=== PATIENT | female | born 1950 | race Hispanic/Latino ===

== ENCOUNTER 2022-09-09 10:16 | Inpatient (IN) | payer OTHER ==
[2022-09-09 10:58] LABS: Absolute Lymphocytes (CBC) 0.9 K/uL (0.7-4.9); Hematocrit 38.2 % (36.0-45.0); Lymphocytes % 7.7 % (15.3-44.8); MCV 90.6 fL (80-100); MPV 8.9 fL (7.6-11.3); RBC Red Blood Cell Count 4.22 M/uL (3.86-4.86)
[2022-09-09] MEDS ORDERED: CEFTRIAXONE 1000 MG/VIAL ONE (11:00)
[2022-09-09] MEDS ORDERED: FENTANYL CITR 100 MCG/2 ML ONE (11:00)
[2022-09-09] MEDS ORDERED: ONDANSETRON 4 MG/2 ML VIAL ONE (11:01)
[2022-09-09] MEDS ORDERED: METRONIDAZOLE 500mg IVPB 500 MG/100 ML BAG IV ONE (11:01)
[2022-09-09 11:02] LABS: Protime INR 1.05
[2022-09-09 11:18] LABS: Albumin 3.8 g/dL (3.4-5.0); Bilirubin Direct 0.2 mg/dL (0-0.2); Bilirubin Indirect, Calculated 0.4 mg/dL (0.2-0.8); Bilirubin Total 0.6 mg/dL (0.2-1.0); Magnesium 2.1 mg/dL (1.6-2.4); Potassium 3.9 mEq/L (3.5-5.1); Protein, Total 7.5 g/dL (6.4-8.2); Troponin High Sensitivity 4.4 pg/mL (<58.9)
--- NOTE | 2022-09-09 11:52 | RAD REPORT ---
EXAM DESCRIPTION: CT - Abdomen Pelvis W Contrast - 09/09/2022 11:39 am CLINICAL HISTORY: Abdominal pain COMPARISON: none. TECHNIQUE: Computed axial tomography of the abdomen pelvis was obtained. 100 cc Isovue-300 was admin istered intravenously. Oral contrast was not requested which limits evaluation of bowel and appendix All CT scans are performed using dose optimization technique as appropriate and may include automated exposure control or mA/KV adjustment according to patient size. FINDINGS: The liver, spleen, pancreas, and adrenals appear unremarkable Small bilateral renal cysts. Normal appendix. No adnexal mass Diverticula stem from the colon. Mild to moderate stranding adjacent the proximal sigmoid colon. No a bscess. No free air Small duodenal diverticulum. Small to moderate umbilical hernia contains fat Thickening of the wall of the distal esophagus could be secondary to incomplete distention or patholo gy such as inflammation. IMPRESSION: Mild to moderate sigmoid diverticulitis Thickening of the wall of the distal esophagus could be secondary to incomplete distention or patholo gy such as inflammation.
--- NOTE | 2022-09-09 11:54 | RAD REPORT ---
EXAM DESCRIPTION: Satish Single View09/09/2022 11:25 am CLINICAL HISTORY: Abdominal pain COMPARISON: none FINDINGS: The lungs appear clear of acute infiltrate. The heart is normal size Mild prominence right paratracheal region IMPRESSION: Mild prominence right paratracheal region may be secondary to tortuous ascending thoraci c aorta. Lymphadenopathy can also have this appearance. Followup PA and lateral chest series in 6 wee ks recommended
[2022-09-09] MEDS ORDERED: FAMOTIDINE 20 MG/2 ML VIAL IV ONE (12:22)
[2022-09-09] MEDS ORDERED: CIPROFLOXACIN 400mg IV 400 MG/200 ML BAG IV ONE (12:22)
--- NOTE | 2022-09-09 12:26 | EDPHYS ---
Physician Documentation [facility] Name: Grace Jones Age: 72 yrs Sex: Female : 1950 Arrival Date: 09/09/2022 Time: 10:16 Bed 5 Private MD: ED Physician Marv Aguiar HPI: 09/09 11:36 This 72 yrs old Female presents to ER via Ambulatory with complaints of indra Abdominal Pain. 11:36 The patient presents with abdominal pain in the lower abdomen, abdominal distention in indra the upper abdomen, in the lower abdomen. Onset: The symptoms/episode began/occurred 2 day(s) ago. The symptoms do not radiate. Associated signs and symptoms: Pertinent positives: constipation, fever. The symptoms are described as constant, crampy. Modifying factors: The symptoms are alleviated by nothing, the symptoms are aggravated by nothing. Severity of pain: At its worst the pain was moderate in the emergency department the pain is unchanged. The patient has not experienced similar symptoms in the past. Historical: - Allergies: 10:20 Aspirin; aa5 - Home Meds: 10:20 Gemfibrozil Oral [Active]; Spironolactone Oral [Active]; escitalopram oxalate oral aa5 [Active]; - PMHx: 10:20 None; aa5 - PSHx: 10:20 Cholecystectomy; aa5 - Immunization history:: Adult Immunizations unknown. - Social history:: Smoking status: Patient denies any tobacco usage or history of. ROS: 11:37 Constitutional: Negative for fever, chills, and weight loss, Eyes: Negative for injury, indra pain, redness, and discharge, ENT: Negative for injury, pain, and discharge, Neck: Negative for injury, pain, and swelling, Cardiovascular: Negative for chest pain, palpitations, and edema, Respiratory: Negative for shortness of breath, cough, wheezing, and pleuritic chest pain, Back: Negative for injury and pain, : Negative for injury, bleeding, discharge, and swelling, MS/Extremity: Negative for injury and deformity, Skin: Negative for injury, rash, and discoloration, Neuro: Negative for headache, weakness, numbness, tingling, and seizure, Psych: Negative for depression, anxiety, suicide ideation, homicidal ideation, and hallucinations, Allergy/Immunology: Negative for hives, rash, and allergies, Endocrine: Negative for neck swelling, polydipsia, polyuria, polyphagia, and marked weight changes, Hematologic/Lymphatic: Negative for swollen nodes, abnormal bleeding, and unusual bruising. 11:37 Abdomen/GI: Positive for abdominal pain, of the left lower quadrant. Exam: 11:37 Head/Face: Normocephalic, atraumatic. Eyes: Pupils equal round and reactive to light, indra extra-ocular motions intact. Lids and lashes normal. Conjunctiva and sclera are non-icteric and not injected. Cornea within normal limits. Periorbital areas with no swelling, redness, or edema. ENT: Nares patent. No nasal discharge, no septal abnormalities noted. Tympanic membranes are normal and external auditory canals are clear. Oropharynx with no redness, swelling, or masses, exudates, or evidence of obstruction, uvula midline. Mucous membranes moist. Neck: Trachea midline, no thyromegaly or masses palpated, and no cervical lymphadenopathy. Supple, full range of motion without nuchal rigidity, or vertebral point tenderness. No Meningismus. Chest/axilla: Normal chest wall appearance and motion. Nontender with no deformity. No lesions are appreciated. Cardiovascular: Regular rate and rhythm with a normal S1 and S2. No gallops, murmurs, or rubs. Normal PMI, no JVD. No pulse deficits. Respiratory: Lungs have equal breath sounds bilaterally, clear to auscultation and percussion. No rales, rhonchi or wheezes noted. No increased work of breathing, no retractions or nasal flaring. Back: No spinal tenderness. No costovertebral tenderness. Full range of motion. Female : Normal external genitalia. Skin: Warm, dry with normal turgor. Normal color with no rashes, no lesions, and no evidence of cellulitis. MS/ Extremity: Pulses equal, no cyanosis. Neurovascular intact. Full, normal range of motion. Neuro: Awake and alert, GCS 15, oriented to person, place, time, and situation. Cranial nerves II-XII grossly intact. Motor strength 5/5 in all extremities. Sensory grossly intact. Cerebellar exam normal. Normal gait. Psych: Awake, alert, with orientation to person, place and time. Behavior, mood, and affect are within normal limits. 11:37 Constitutional: The patient appears well developed, febrile. 11:37 ECG was reviewed by the Attending Physician. Vital Signs: 10:20 BP 107 / 54; Pulse 61; Resp 18 S; Temp 100.2(O); Pulse Ox 98% ; Weight 72.57 kg (R); aa5 Height 5 ft. 2 in. (R); 12:01 Temp 98.4(O); aa5 12:01 BP 94 / 54; Pulse 60; Resp 16 S; Pulse Ox 95% on R/A; Pain 3/10; aa5 14:00 BP 106 / 62; Pulse 58; Resp 18 S; Temp 98.1(O); Pulse Ox 98% on R/A; aa5 15:20 BP 95 / 54; Pulse 54; Resp 17 S; Temp 98(O); Pulse Ox 98% on R/A; aa5 16:42 BP 95 / 70; Pulse 56; Resp 16 S; Pulse Ox 95% on R/A; aa5 17:45 BP 90 / 44; Pulse 55; Resp 16 S; Temp 98.6(O); Pulse Ox 96% on R/A; aa5 20:03 BP 91 / 53; Pulse 62; Resp 17; Pulse Ox 96% on R/A; lg3 10:20 Body Mass Index 29.26 (72.57 kg, 157.48 cm) aa5 12:01 Pain Scale: Adult aa5 MDM: 10:32 Patient medically screened. [facility] 11:39 Differential diagnosis: bowel obstruction, diverticulitis, gastritis, gastroesophageal indra reflux disease, non-specific abd pain, pancreatitis, Peptic Ulcer Disease. Data reviewed: vital signs, nurses notes, lab test result(s), EKG, radiologic studies, CT scan, plain films. Consideration of Admission/Observation Escalation of care including admission/observation considered. I considered the following discharge prescriptions or medication management in the emergency department Medications were administered in the Emergency Department. See MAR. Test considered but Not performed: Ultrasound NO ABD USG. Care significantly affected by the following chronic conditions:. Counseling: I had a detailed discussion with the patient and/or guardian regarding: the historical points, exam findings, and any diagnostic results supporting the discharge/admit diagnosis, lab results, radiology results. 09/09 10:34 Order name: Basic Metabolic Panel; Complete Time: 11:29 indra 09/09 10:34 Order name: CBC with Diff; Complete Time: 11:29 [facility] 09/09 10:34 Order name: LFT's; Complete Time: 11:29 09/09 10:34 Order name: Magnesium; Complete Time: 11:29 09/09 10:34 Order name: NT PRO-BNP; Complete Time: 11:29 09/09 10:34 Order name: PT-INR; Complete Time: 11:29 [facility] 09/09 10:34 Order name: Troponin HS; Complete Time: 11:29 [facility] 09/09 10:34 Order name: Lipase; Complete Time: 11:29 09/09 10:34 Order name: Lactate w/ 2H reflex if indic.; Complete Time: 11:29 [facility] 09/09 19:29 Order name: Basic Metabolic Panel EDMS 09/09 19:29 Order name: Basic Metabolic Panel EDMS 09/09 19:29 Order name: CBC with Automated Diff EDMS 09/09 19:29 Order name: CBC with Automated Diff EDMS 09/09 10:34 Order name: XRAY Chest (1 view); Complete Time: 12:10 [facility] 09/09 10:34 Order name: CT Abd/Pelvis - IV Contrast Only; Complete Time: 12:10 [facility] 09/09 10:34 Order name: EKG; Complete Time: 10:34 [facility] 09/09 19:29 Order name: Clear Liquid EDCO 09/09 10:34 Order name: Cardiac monitoring; Complete Time: 10:48 09/09 10:34 Order name: EKG - Nurse/Tech; Complete Time: 11:23 [facility] 09/09 10:34 Order name: IV Saline Lock; Complete Time: 11:03 [facility] 09/09 10:34 Order name: Labs collected and sent; Complete Time: 11:03 [facility] 09/09 10:34 Order name: O2 Per Protocol; Complete Time: 10:48 [facility] 09/09 10:34 Order name: O2 Sat Monitoring; Complete Time: 10:48 [facility] EC:37 Rate is 61 beats/min. Rhythm is regular. QRS [place] is Normal. HI interval is normal. QRS indra interval is normal. QT interval is normal. No Q waves. T waves are Normal. No ST changes noted. Clinical impression: NSR w/ Non-specific ST/T Changes and No evidence of ischemia. Interpreted by me. Reviewed by me. Administered Medications: 10:58 Drug: Rocephin IV 2 grams Route: IV; Rate: per protocol; Site: right antecubital; aa5 11:20 Follow up: Response: No adverse reaction aa5 10:58 Drug: Ondansetron IVP 4 mg Route: IVP; Site: right antecubital; aa5 11:30 Follow up: Response: No adverse reaction aa5 11:00 Drug: fentaNYL (PF) IVP 25 mcg Route: IVP; Site: right antecubital; aa5 11:30 Follow up: Response: No adverse reaction aa5 11:20 Drug: metroNIDAZOLE IVPB 500 mg Volume: 100 ml; Route: IVPB; Rate: 200 ml/hr; Infused aa5 Over: 30 mins; Site: right antecubital; 11:30 Follow up: Response: No adverse reaction aa5 12:30 Follow up: Response: No adverse reaction; IV Status: Completed infusion; Infusion was aa5 paused for CT scan. 12:01 Not Given (Physician Discretion): Acetaminophen PO 650 mg PO once aa5 12:40 Drug: Ciprofloxacin IVPB 400 mg Volume: 200 ml; Route: IVPB; Infused Over: 60 mins; aa5 Site: right antecubital; 13:45 Follow up: IV Status: Completed infusion; upon completion of infusion, pt c/o itching aa5 to scalp, no rash noted. MD notified and benadryl ordered. 12:40 Drug: Famotidine IVP 20 mg Route: IVP; Site: right antecubital; aa5 13:00 Follow up: Response: No adverse reaction aa5 13:45 Drug: diphenhydrAMINE IVP 25 mg Route: IVP; Site: right antecubital; aa5 14:00 Follow up: Response: No adverse reaction; Marked relief of symptoms; Marked relief of aa5 symptoms. Pt denies itching at this time. 14:24 Drug: NS 0.9% IV 1000 ml Route: IV; Rate: 1 bolus; Site: left forearm; aa5 15:45 Follow up: IV Status: Completed infusion; IV Intake: 1000ml aa5 14:45 Drug: NS 0.9% IV 500 ml Route: IV; Rate: bolus; Site: left forearm; aa5 15:45 Follow up: IV Status: Completed infusion; IV Intake: 500ml aa5 14:45 Drug: Piperacillin-Tazobactam IVPB 3.375 grams Route: IVPB; Infused Over: 60 mins; aa5 Site: left forearm; 15:45 Follow up: Response: No adverse reaction; IV Status: Completed infusion aa5 15:30 Drug: NS 0.9% IV 1000 ml Route: IV; Rate: 125 ml/hr; Site: left forearm; aa5 17:40 Follow up: IV Status: Infusion continued aa5 Disposition Summary: 09/09/22 14:16 Hospitalization Ordered Hospitalization Status: Inpatient Admission indra Provider: Tom Holden cha Location: Telemetry/MedSurg (Inpatient)(09/09/22 14:16) indra Condition: Fair(09/09/22 14:16) indra Problem: new(09/09/22 14:16) indra Symptoms: have improved(09/09/22 14:16) indra Bed/Room Type: Standard indra Room Assignment: 208(09/09/22 19:44) cg Diagnosis - Fever, unspecified(09/09/22 14:16) indra - Abdominal tenderness indra - Elevated white blood cell count(09/09/22 14:16) indra - Diverticulitis of large intestine without perforation or abscess without bleeding - indra SIGMOID COLON(09/09/22 14:16) Forms: - Medication Reconciliation Form indra - SBAR form indra Signatures: Dispatcher [employer] EDMarv Granado MD MD cha Calderon, Audri RN RN aa5 Sunitha Kaplan RN RN cg Corrections: (The following items were deleted from the chart) 14:12 12:25 Home indra indra 14:12 12:25 new indra indra 14:12 12:25 have improved indra indra 14:12 12:25 Stable indra indra 14:12 12:25 Fever, unspecified indra indra 14:12 12:25 Elevated white blood cell count indra indra 14:12 12:25 Esophagitis, unspecified indra indra 14:12 12:25 Diverticulitis of large intestine without perforation or abscess without bleeding indra indra 19:44 14:16 indra cg
--- NOTE | 2022-09-09 12:26 | ER ---
Nurse's Notes [facility] Name: Grace Jones Age: 72 yrs Sex: Female : 1950 Arrival Date: 09/09/2022 Time: 10:16 Bed 5 Private MD: Diagnosis: Fever, unspecified;Abdominal tenderness;Elevated white blood cell count;Diverticulitis of large intestine without perforation or abscess without bleeding-SIGMOID COLON Presentation: 09/09 10:20 Chief complaint: Patient states: no energy x 1 1/2 weeks, reports shaking all over last aa5 night, and abd pain x 1 week but got worse today. Denies nausea/vomiting. 10:20 Coronavirus screen: chills. Ebola Screen: Patient denies travel to an Ebola-affected [facility] area in the 21 days before illness onset. Initial Sepsis Screen: Does the patient meet any 2 criteria? No. Patient's initial sepsis screen is negative. Does the patient have a suspected source of infection? Yes:. Risk Assessment: Do you want to hurt yourself or someone else? Patient reports no desire to harm self or others. Onset of symptoms was August 2022. 10:20 Acuity: LORENZA 3 aa5 10:20 Method Of Arrival: Ambulatory aa5 Historical: - Allergies: 10:20 Aspirin; aa5 - Home Meds: 10:20 Gemfibrozil Oral [Active]; Spironolactone Oral [Active]; escitalopram oxalate oral aa5 [Active]; - PMHx: 10:20 None; aa5 - PSHx: 10:20 Cholecystectomy; aa5 - Immunization history:: Adult Immunizations unknown. - Social history:: Smoking status: Patient denies any tobacco usage or history of. Screenin:20 [facility] ED Fall Risk Assessment (Adult) History of falling in the last 3 months, eh3 including since admission No falls in past 3 months (0 pts). Abuse screen: Denies threats or abuse. Denies injuries from another. Nutritional screening: No deficits noted. On. Tuberculosis screening: No symptoms or risk factors identified. Tuberculosis screening: No symptoms or risk factors identified. Assessment: 10:20 General: Appears comfortable, Behavior is calm, cooperative. Pain: Complains of pain in aa5 right lower quadrant and left lower quadrant Pain does not radiate. Pain currently is 5 out of 10 on a pain scale. at worst was 8 out of 10 on a pain scale. Quality of pain is described as aching, sharp, Pain began 1 week ago but worse today Is intermittent. Neuro: Level of Consciousness is awake, alert, obeys commands, Oriented to person, place, time, situation. Cardiovascular: Heart tones S1 S2 present Rhythm is regular. Respiratory: Airway is patent Respiratory effort is even, unlabored, Respiratory pattern is regular, symmetrical. GI: Abdomen is round non-distended, Bowel sounds present X 4 quads. Abd is soft X 4 quads Abdomen is tender to palpation in left lower quadrant Patient currently denies nausea, vomiting. : No signs and/or symptoms were reported regarding the genitourinary system. EENT: No signs and/or symptoms were reported regarding the EENT system. Derm: Skin is pink, warm \\T\\ dry. Musculoskeletal: Range of motion: intact in all extremities. 11:05 Reassessment: Patient is alert, oriented x 3, equal unlabored respirations, skin aa5 warm/dry/pink. reports fentanyl made her dizzy. . 11:30 Reassessment: Patient is alert, oriented x 3, equal unlabored respirations, skin aa5 warm/dry/pink. Patient states feeling better. reports pain has improved. . 12:01 Reassessment: Patient is alert, oriented x 3, equal unlabored respirations, skin aa5 warm/dry/pink. Patient states feeling better. Denies dizziness. . 12:30 Reassessment: MD at bedside updating pt about POC. . aa5 12:33 Reassessment: Awaiting to receive Cipro before d/c home . aa5 13:45 Reassessment: Patient is alert, oriented x 3, equal unlabored respirations, skin aa5 warm/dry/pink. 14:00 Reassessment: Patient is alert, oriented x 3, equal unlabored respirations, skin aa5 warm/dry/pink. Pt reports itching to scalp is gone. Pt states "I know the doctor offered to keep me in the hospital and I don't feel so good now so I really think I should stay". Pt reports intermittent dizziness and fatigue. MD was notified. . 16:38 Reassessment: Dr. Holden (hospitalist) at bedside . aa5 17:45 Reassessment: Patient is alert, oriented x 3, equal unlabored respirations, skin aa5 warm/dry/pink. Patient states feeling better. 17:45 Reassessment: Awaiting admission orders for room assignment, pt notified of wait time. .aa5 Vital Signs: 10:20 BP 107 / 54; Pulse 61; Resp 18 S; Temp 100.2(O); Pulse Ox 98% ; Weight 72.57 kg (R); aa5 Height 5 ft. 2 in. (R); 12:01 Temp 98.4(O); aa5 12:01 BP 94 / 54; Pulse 60; Resp 16 S; Pulse Ox 95% on R/A; Pain 3/10; aa5 14:00 BP 106 / 62; Pulse 58; Resp 18 S; Temp 98.1(O); Pulse Ox 98% on R/A; aa5 15:20 BP 95 / 54; Pulse 54; Resp 17 S; Temp 98(O); Pulse Ox 98% on R/A; aa5 16:42 BP 95 / 70; Pulse 56; Resp 16 S; Pulse Ox 95% on R/A; aa5 17:45 BP 90 / 44; Pulse 55; Resp 16 S; Temp 98.6(O); Pulse Ox 96% on R/A; aa5 20:03 BP 91 / 53; Pulse 62; Resp 17; Pulse Ox 96% on R/A; lg3 10:20 Body Mass Index 29.26 (72.57 kg, 157.48 cm) aa5 12:01 Pain Scale: Adult aa5 ED Course: 10:18 Patient arrived in ED. im 10:30 Patient has correct armband on for positive identification. Bed in low position. Call mm9 light in reach. Side rails up X 1. Adult w/ patient. Warm blanket given. Pulse ox on. NIBP on. 10:32 Marv Aguiar MD is Attending Physician. indra 10:33 Lillian Chandler RN is Primary Nurse. aa5 10:36 Triage completed. aa5 10:40 Inserted saline lock: 22 gauge in right antecubital area, using aseptic technique. aa5 ,using aseptic technique. IV inserted by CADENCE Begum tech. 11:23 XRAY Chest (1 view) Sent. mm9 11:27 XRAY Chest (1 view) In Process Unspecified. EDMS 11:40 CT Abd/Pelvis - IV Contrast Only In Process Unspecified. EDMS 12:25 Jason Keene MD is Referral Physician. [facility] 14:12 Tom Holden MD is Hospitalizing Provider. indra 14:20 IV 22G R AC hard to flush at this time, 22G R AC dc'd, catheter intact, pressure aa5 dressing applied. . 14:23 Inserted saline lock: 20 gauge in left forearm, using aseptic technique. aa5 19:00 Report given to CARLOS Barreto. aa5 20:20 No provider procedures requiring assistance completed. Patient admitted, IV remains in eh3 place. Administered Medications: 10:58 Drug: Rocephin IV 2 grams Route: IV; Rate: per protocol; Site: right antecubital; aa5 11:20 Follow up: Response: No adverse reaction aa5 10:58 Drug: Ondansetron IVP 4 mg Route: IVP; Site: right antecubital; aa5 11:30 Follow up: Response: No adverse reaction aa5 11:00 Drug: fentaNYL (PF) IVP 25 mcg Route: IVP; Site: right antecubital; aa5 11:30 Follow up: Response: No adverse reaction aa5 11:20 Drug: metroNIDAZOLE IVPB 500 mg Volume: 100 ml; Route: IVPB; Rate: 200 ml/hr; Infused aa5 Over: 30 mins; Site: right antecubital; 11:30 Follow up: Response: No adverse reaction aa5 12:30 Follow up: Response: No adverse reaction; IV Status: Completed infusion; Infusion was aa5 paused for CT scan. 12:01 Not Given (Physician Discretion): Acetaminophen PO 650 mg PO once aa5 12:40 Drug: Ciprofloxacin IVPB 400 mg Volume: 200 ml; Route: IVPB; Infused Over: 60 mins; aa5 Site: right antecubital; 13:45 Follow up: IV Status: Completed infusion; upon completion of infusion, pt c/o itching aa5 to scalp, no rash noted. notified and benmercedesryl ordered. 12:40 Drug: Famotidine IVP 20 mg Route: IVP; Site: right antecubital; aa5 13:00 Follow up: Response: No adverse reaction aa5 13:45 Drug: diphenhydrAMINE IVP 25 mg Route: IVP; Site: right antecubital; aa5 14:00 Follow up: Response: No adverse reaction; Marked relief of symptoms; Marked relief of aa5 symptoms. Pt denies itching at this time. 14:24 Drug: NS 0.9% IV 1000 ml Route: IV; Rate: 1 bolus; Site: left forearm; aa5 15:45 Follow up: IV Status: Completed infusion; IV Intake: 1000ml aa5 14:45 Drug: NS 0.9% IV 500 ml Route: IV; Rate: bolus; Site: left forearm; aa5 15:45 Follow up: IV Status: Completed infusion; IV Intake: 500ml aa5 14:45 Drug: Piperacillin-Tazobactam IVPB 3.375 grams Route: IVPB; Infused Over: 60 mins; aa5 Site: left forearm; 15:45 Follow up: Response: No adverse reaction; IV Status: Completed infusion aa5 15:30 Drug: NS 0.9% IV 1000 ml Route: IV; Rate: 125 ml/hr; Site: left forearm; aa5 17:40 Follow up: IV Status: Infusion continued aa5 Medication: 20:20 VIS not applicable for this client. eh3 Intake: 15:45 IV: 500ml; Total: 500ml. aa5 15:45 IV: 1000ml; Total: 1500ml. aa5 Outcome: 12:25 Discharge ordered by . indra 14:16 Decision to Hospitalize by Provider. indra 20:20 Admitted to Med/surg eh3 20:20 Condition: stable 20:20 Instructed on the need for admit, Demonstrated understanding of instructions. 20:20 Patient left the ED. eh3 Signatures: Dispatcher [employer] EDNH Marv Aguiar MD MD cha Calderon, Audri, RN RN aa5 Mary Lou Rodriguez, CARLOS RN [email or web address] Mone Chan, CARLOS [email or web address] Jacqueline De Leon Itzel im Corrections: (The following items were deleted from the chart) 13:46 13:45 IV Status: Completed infusion aa5 aa5 13:47 13:46 IV Status: Completed infusion; upon completion of infusion, pt c/o itching to aa5 scalp, no rash noted. MD notified and benadryl ordered. aa5 16:32 14:00 BP 106 / 62; Pulse 58bpm; Resp 18bpm; Spontaneous; Pulse Ox 98% RA; aa5 aa5
[2022-09-09] MEDS ORDERED: DIPHENHYDRAMINE 50 MG/ML VIAL ONE (13:51)
[2022-09-09] MEDS ORDERED: NA CHLORIDE 0.9% 1,000 ML ONE ×2 (14:21→14:47)
[2022-09-09] MEDS ORDERED: NA CHLORIDE 0.9% 500 ML ONE (14:48)
[2022-09-09] MEDS ORDERED: PIPERACIL/TAZO 3.375 GM VIAL IV ONE (14:48)
[2022-09-09 20:56] VITALS: BMI 29.2
[2022-09-09 20:57] VITALS: O2SAT 97
[2022-09-09] MEDS: NA CHLORIDE 0.9% 1,000 ML IV SCH (21:00)
[2022-09-10 02:58] LABS: Absolute Lymphocytes (CBC) 1.1 K/uL (0.7-4.9); Hematocrit 31.5 % (36.0-45.0); MCV 91.8 fL (80-100); RBC Red Blood Cell Count 3.43 M/uL (3.86-4.86)
[2022-09-10 03:10] LABS: Potassium 3.8 mEq/L (3.5-5.1)
[2022-09-10] MEDS: NA CHLORIDE 0.9% 1,000 ML IV SCH ×2 (05:10→16:07)
--- NOTE | 2022-09-10 05:20 | P.HP ---
Certification for Inpatient Patient admitted to: Observation With expected LOS: <2 Midnights Patient will require the following post-hospital care: None Practitioner: I am a practitioner with admitting privileges, knowledge of patient current condition, hospital course, and medical plan of care. Services: Services provided to patient in accordance with Admission requirements found in Title 42 Section 412.3 of the Code of Federal Regulations Patient History Date of Service: 09/10/22 Reason for admission: Sigmoid diverticulitis History of Present Illness: Patient is a 72-year-old female who came to the hospital with abdominal pain. Pain has been worsening over the last couple of days was pretty severe at 4 in the morning. The family brought her into the emergency room for further evaluation.In the emergency room, patient had low blood pressure and low heart rate. CT scan revealed sigmoid diverticulitis with no perforation. Patient was given IV fluids and her blood pressure has been fairly stable but she still is on the low side. She takes Aldactone at home for hair growth per her family. Otherwise she does not take any antihypertensives. At this time, patient will be admitted to the hospital for further work-up. We will check thyroid and cortisol levels. Continue with antibiotic therapy. Allergies aspirin Allergy (Verified 07/26/12 20:24) Itching - Past Medical/Surgical History Has patient received pneumonia vaccine in the past: Yes -: Hypothyroidism -: Partial thyroidectomy - Family History Father Family History: Reviewed- Non-Contributory - Social History Smoking Status: Never smoker Alcohol use: No Caffeine use: Yes Review of Systems 10-point ROS is otherwise unremarkable Physical Examination - Vital Signs Temperature: 97.6 F Blood Pressure: 98/60 Pulse: 59 Respirations: 18 Pulse Ox (%): 93 - Physical Exam General: Alert, In no apparent distress, Oriented x3 HEENT: Atraumatic, PERRLA, Mucous membr. moist/pink, EOMI, Sclerae nonicteric Neck: Supple, 2+ carotid pulse no bruit, No LAD, Without JVD or thyroid abnormality Respiratory: Clear to auscultation bilaterally, Normal air movement Cardiovascular: Regular rate/rhythm, Normal S1 S2 Gastrointestinal: Normal bowel sounds, No masses, No rebound, Tenderness (Left lower quadrant) Musculoskeletal: No clubbing, No swelling, No tenderness Integumentary: No rashes Neurological: Normal gait, Normal speech, Normal strength at 5/5 x4 extr, Normal tone, Normal affect Lymphatics: No axilla or inguinal lymphadenopathy - Studies Laboratory Data (last 24 hrs) 09/09/22 10:50: PT 11.6, INR 1.05 09/09/22 10:50: WBC 11.90 H, Hgb 12.6, Hct 38.2, Plt Count 218 09/09/22 10:50: Sodium 138, Potassium 3.9, BUN 28 H, Creatinine 1.11 H, Glucose 120 H, Magnesium 2.1, Total Bilirubin 0.6, AST 13 L, ALT 24, Alkaline Phosphatase 105, Lipase 68 Assessment & Plan - Problems (Diagnosis) (1) Hypotension Current Visit: Yes Status: Acute (2) Bradycardia Current Visit: Yes Status: Acute (3) Sigmoid diverticulitis Current Visit: Yes Status: Acute - Plan -aggressive IV hydration -IV antibiotics -outpatient colonoscopy -pain controlled -stool studies -monitor for possible perforation -surgery consultation if pain does not improve -CT abdomen pelvis pending - Advance Directives Does patient have a Living Will: Yes Does patient have a Durable POA for Healthcare: Yes
[2022-09-10 06:28] LABS: Specific Gravity > 1.030 (1.005-1.030); Urine Bacteria 20-50 /HPF (<20); Urine Bilirubin NEGATIVE (Negative); Urine Blood Negative (Negative); Urine Clarity Clear (Clear); Urine Color Light-Yellow (Yellow); Urine Glucose NEGATIVE (Negative); Urine Mucus Slight /HPF (None Seen); Urine Protein NEGATIVE (Negative); Urine RBC <5 /HPF (None Seen); Urine Urobilinogen Normal (Normal)
[2022-09-10] MEDS ORDERED: ACETAMINOPHEN 325 MG TABLET PO PRN (08:27)
[2022-09-10 08:48] LABS: Thyroid Stimulating Hormone 0.815 uIU/mL (0.358-3.740)
[2022-09-10] MEDS: CEFTRIAXONE 1,000 MG in NA CHLORIDE 0.9% 50 ML IVPB SCH (09:37)
[2022-09-10] MEDS: METRONIDAZOLE 500mg IVPB 500 MG/100 ML BAG IV SCH ×2 (10:18→16:07)
--- NOTE | 2022-09-10 14:22 | EKG ---
Test Date: 2022-09-09 Test Time: 11:19:33 [employer] Driver: TYRESE MEASUREMENT RESULTS: Intervals: Rate: 61 NE: 128 QRSD: 80 QT: 454 QTc: 457 [place]: P: 58 NE: 128 QRS: 16 T: 54 INTERPRETIVE STATEMENTS: Normal sinus rhythm Normal ECG No previous ECG available for comparison Electronically Signed On 09-10-22 14:21:27 CDT by Jose J Rao
[2022-09-10] MEDS ORDERED: ACETAMIN/CAFFEINE/BUTALB TAB PO ONE (19:01)
[2022-09-11] MEDS: METRONIDAZOLE 500mg IVPB 500 MG/100 ML BAG IV SCH ×2 (00:14→08:34)
[2022-09-11 00:15] LABS: Absolute Lymphocytes (CBC) 0.9 K/uL (0.7-4.9); Hematocrit 31.3 % (36.0-45.0); Lymphocytes % 13.8 % (15.3-44.8); MCV 91.8 fL (80-100); MPV 9.1 fL (7.6-11.3); RBC Red Blood Cell Count 3.41 M/uL (3.86-4.86)
[2022-09-11] MEDS: NA CHLORIDE 0.9% 1,000 ML IV SCH ×2 (02:00→03:52)
[2022-09-11 04:41] LABS: Potassium 3.7 mEq/L (3.5-5.1)
[2022-09-11 04:42] LABS: Absolute Lymphocytes (CBC) 1.2 K/uL (0.7-4.9); Hematocrit 30.2 % (36.0-45.0); Lymphocytes % 19.2 % (15.3-44.8); MCV 91.6 fL (80-100); MPV 9.2 fL (7.6-11.3)
[2022-09-11] MEDS ORDERED: NA CHLORIDE 0.9% 1,000 ML IV SCH (07:37)
[2022-09-11] MEDS ORDERED: SODIUM CHLORIDE 0.9% 10ML INJ IV PRN (07:38)
[2022-09-11 08:22] VITALS: BP 97/54; TEMP 98.1
[2022-09-11] MEDS: CEFTRIAXONE 1,000 MG in NA CHLORIDE 0.9% 50 ML IVPB SCH (08:34)
[2022-09-11] MEDS ORDERED: PANTOPRAZOLE 40 MG INJ IVP SCH (09:00)
[2022-09-11 11:22] LABS: Hematocrit 32.6 % (36.0-45.0); Lymphocytes % 15.5 % (15.3-44.8); MCV 91.7 fL (80-100); MPV 9.1 fL (7.6-11.3); RBC Red Blood Cell Count 3.56 M/uL (3.86-4.86)
--- NOTE | 2022-09-11 11:43 | P.PN ---
Date of Service: 09/11/22 Subjective: ROS: 10 point ROS as noted above, otherwise negative Physical Exam: GEN: Alert, oriented, NAD HEENT: Normal conjunctiva, sclera anicteric CV: Regular rate & rhythm, no edema Pulm: Nonlabered respiraitons on room air ABD: Soft, nontender, nondistended MSK: No joint tenderness Integumentary: No rashes Neuro: Normal speech, normal affect vitals reviewed Problem List: VTE: Code: Dispo:
--- NOTE | 2022-09-11 14:21 | P.DS ---
Disposition: TRANSFER TO [facility] Reason for Admission: Sigmoid diverticulitis Consultations: GI - Dr. Melgar - Problems (1) Hypotension Status: Acute (2) Bradycardia Status: Acute (3) Sigmoid diverticulitis Status: Acute Brief History of Present Illness: Patient is a 72-year-old female who came to the hospital with abdominal pain. Pain has been worsening over the last couple of days was pretty severe at 4 in the morning. The family brought her into the emergency room for further evaluation.In the emergency room, patient had low blood pressure and low heart rate. CT scan revealed sigmoid diverticulitis with no perforation. Patient was given IV fluids and her blood pressure has been fairly stable but she still is on the low side. She takes Aldactone at home for hair growth per her family. Otherwise she does not take any antihypertensives. At this time, patient will be admitted to the hospital for further work-up. We will check thyroid and cortisol levels. Continue with antibiotic therapy. Hospital Course: Problem List: Sigmoid diverticulitis Hypotension Bradycardia General: Alert, In no apparent distress, Oriented x3 HEENT: Atraumatic, PERRLA, Mucous membr. moist/pink, EOMI, Sclerae nonicteric Neck: Supple, 2+ carotid pulse no bruit, No LAD, Without JVD or thyroid abnormality Respiratory: Clear to auscultation bilaterally, Normal air movement Cardiovascular: Regular rate/rhythm, Normal S1 S2 Gastrointestinal: Normal bowel sounds, No masses, No rebound, Tenderness (Left lower quadrant) Musculoskeletal: No clubbing, No swelling, No tenderness Integumentary: No rashes Neurological: Normal gait, Normal speech, Normal strength at 5/5 x4 extr, Normal tone, Normal affect Lymphatics: No axilla or inguinal lymphadenopathy Vital Signs/Physical Exam: Temp Pulse Resp BP Pulse Ox 98.1 F 60 16 97/54 L 97 09/11/22 08:00 09/11/22 08:00 09/11/22 08:00 09/11/22 08:00 09/11/22 08:00 Laboratory Data at Discharge: WBC 6.50 thou/uL (4.3-10.9) 09/11/22 10:49 Hgb Cancelled 09/11/22 13:00 Hct 32.6 % (36.0-45.0) L 09/11/22 10:49 Plt Count 172 thou/uL (152-406) 09/11/22 10:49 PT 11.6 SECONDS (9.5-12.5) 09/09/22 10:50 INR 1.05 09/09/22 10:50 Sodium 140 mEq/L (136-145) 09/11/22 03:51 Potassium 3.7 mEq/L (3.5-5.1) 09/11/22 03:51 BUN 10 mg/dL (7-18) 09/11/22 03:51 Creatinine 0.72 mg/dL (0.55-1.02) 09/11/22 03:51 Glucose 104 mg/dL (74-106) 09/11/22 03:51 Magnesium 2.1 mg/dL (1.6-2.4) 09/09/22 10:50 Total Bilirubin 0.6 mg/dL (0.2-1.0) 09/09/22 10:50 AST 13 U/L (15-37) L 09/09/22 10:50 ALT 24 U/L (13-56) 09/09/22 10:50 Alkaline Phosphatase 105 U/L (45-117) 09/09/22 10:50 Lipase 68 U/L (13-75) 09/09/22 10:50 Home Medications: Atorvastatin Calcium 40 mg PO DAILY 09/10/22 Calcium Carbonate/Vitamin D3 [Calcium 250-D Tablet] 250 mg PO BID 09/10/22 Cholecalciferol (Vitamin D3) [Vitamin D 1000 Iu Tab*] 1,000 units PO DAILY 09/10/22 Cyanocobalamin (Vitamin B-12) [Vitamin B-12] 1,000 mcg PO DAILY 09/10/22 Escitalopram Oxalate [Lexapro] 5 mg PO DAILY 09/10/22 Fluticasone [Flonase 50MCG Nasal [place]*] 2 sprays [place]OK[place] DAILY 09/10/22 Levothyroxine [Synthroid*] 0.1 mg PO DAILY 09/10/22 Multivit-Min/Iron/Folic Acid/K [Multi-Day Plus Minerals Tablet] 1 tab PO DAILY 09/10/22 Pantoprazole [Protonix Tab*] 10 mg PO DAILY 09/10/22 Ubiquinol [Coqmax Ubiquinol] 300 mg PO DAILY 09/10/22 gemfibroziL [Lopid*] 600 mg pe PO BID 09/10/22 Followup: OOT,OOT [Primary Care Provider] - Time spent managing pt's care (in minutes): 45
== END 2022-09-11 12:15 | disposition short-term general hospital (02) | DRG 392 ==
LOC: ER 10:16 → INTOOBSV 19:25 → OBSVTOIN 19:25 → ERHOLD 19:25 → 2ND 20:10 → OBSVTOIN 09-10 19:04
PROVIDERS: ADMIT Hospitalist; ATTEND Hospitalist
DX: K57.32 Diverticulitis of large intestine without perforation or abscess without bleeding (principal); I95.9 Hypotension, unspecified; R00.1 Bradycardia, unspecified; E89.0 Postprocedural hypothyroidism; R50.9 Fever, unspecified; Z79.899 Other long term (current) drug therapy; Z88.6 Allergy status to analgesic agent; Z90.49 Acquired absence of other specified parts of digestive tract
CPT/HCPCS: 36415; 71045; 74177; 80048; 80076; 81001; 82533; 83605; 83690; 83735; 83880; 84439; 84443; 84484; 85014; 85018; 85025; 85610; 86850; 86900; 86901; 93005; 99285; C9113; G0378; J0696; J0744; J1200; J2405; J2543; J3010; J7030; J7040; Q9967